=== PATIENT | male | born 1965 | race Caucasian/White ===

== ENCOUNTER → 2020-08-27 | Outpatient (CLI) | payer BC, OTHER ==
--- NOTE | 2020-09-01 17:18 | SLEEPHOME ---
DATE: 08/27/2020 ORDERED BY: Nicky Mitchell Diagnostic home sleep testing was performed due to concern for the obstructive sleep apnea syndrome in this patient with a history of the same. For testing, a nocturnal T3 respiratory monitoring device was used. Continuous record was made of pulse, oxygen saturation, air flow, chest and abdominal strain, and body position. Nine hours and 59 minutes of data were reviewed. There were 4 hours and 21 minutes marked as time in bed. During the interval marked time in bed, there were 73 respiratory events identified of 10 seconds in duration or greater for a respiratory event index of 16.8. The events were primarily obstructive. Baseline pulse rate 58. Pulse rate ranged 49 to 72. Baseline saturation was 94%. Saturations fell to 87% and testing was performed in both the supine and nonsupine positions. IMPRESSION: Abnormal home sleep testing with repetitive respiratory events and oxygen desaturations to 87% is consistent with the obstructive sleep apnea syndrome. RECOMMENDATION: The patient should be encouraged to return to [facility] for a pressure titration.
== END ==
LOC: M SLEEP HO 11:16
PROVIDERS: ATTEND Internal Medicine Pulmonary Disease
DX: G47.33 Obstructive sleep apnea (adult) (pediatric) (principal)